=== PATIENT | male | born 1950 | race Hispanic/Latino ===

== ENCOUNTER 2017-07-14 08:30 | Observation (INO) | payer MEDICARE, OTHER ==
[~2017-07-14] VITALS: Ht 177.8 cm; Wt 95.7 kg
[~2017-07-14 08:30] MED LIST: ASPI-555 PO; CLOP75TA14 PO; LOSA50TA37 PO; METO-408 PO; ROSU5TAB18 PO
[2017-07-14] MEDS ORDERED: NITROGLYCERIN 1GM/1 INCH PACKET TD ONE (08:53)
[2017-07-14] MEDS ORDERED: ASPIRIN 81MG TAB.CHEW ONE (08:53)
[2017-07-14 09:03] LABS: BASOPHILS % (AUTO) 0.5 % (0.0-5.0); EOSINOPHILS % (AUTO) 3.5 % (0.0-8.0); HEMATOCRIT 39.4 % (42-54); LYMPHOCYTES % (AUTO) 36.1 % (21.0-51.0); MEAN CORPUSCULAR HEMOGLOBIN 28.8 pg (27.0-33.0); MEAN CORPUSCULAR HGB CONC 33.8 g/dL (32.0-36.0); MEAN CORPUSCULAR VOLUME 85.3 fL (79-99); MONOCYTES % (AUTO) 9.7 % (3.0-13.0); NEUTROPHILS % (AUTO) 50.2 % (40.0-77.0); NUCLEATED RED BLOOD CELLS 0.1 % (0.0-0.19); PLATELET COUNT (AUTO) 174 K/uL (130-400); RED BLOOD CELL COUNT(AUTO) 4.62 MIL/uL (4.50-6.20); RED CELL DISTRIBUTION WIDTH 12.7 % (11.0-15.5); WHITE BLOOD COUNT (AUTO) 6.6 K/uL (4.8-10.8)
[2017-07-14 09:20] LABS: INR 0.95 (0.85-1.15); PARTIAL THROMBOPLASTIN TIME 24.8 SEC (26.3-35.5)
[2017-07-14 09:23] LABS: CREATININE 0.9 mg/dL (0.5-1.5)
[2017-07-14 09:37] LABS: ALBUMIN 3.6 g/dL (3.5-5.0); BILIRUBIN,TOTAL 0.8 mg/dL (0.2-1.0); CREATINE KINASE MB 0.6 ng/mL (0.5-3.6); TOTAL PROTEIN, SERUM 7.1 g/dL (6.0-8.3)
[2017-07-14] MEDS ORDERED: ACETAMINOPHEN-CODEINE 300/30MG TAB PO PRN ×2 (10:45)
[2017-07-14] MEDS ORDERED: LACTULOSE 20 GM/30 ML UDCUP PO PRN (10:45)
[2017-07-14] MEDS ORDERED: POTASSIUM CHLORIDE 20 MEQ ERTAB PO PRN (10:45)
[2017-07-14] MEDS ORDERED: NITROGLYCERIN 0.4 MG SL TAB SL PRN (10:45)
[2017-07-14] MEDS ORDERED: MORPHINE SULFATE 2 MG/ML 1ML SYG IV PRN (10:45)
[2017-07-14] MEDS ORDERED: ONDANSETRON HCL 4 MG/2 ML VIAL IV PRN (10:45)
[2017-07-14] MEDS ORDERED: LIDOCAINE HCL-MPF 1% 2ML VIAL IVP PRN (10:45)
[2017-07-14] MEDS ORDERED: HYDRALAZINE HCL 20 MG/ML VIAL IV PRN (10:45)
[2017-07-14] MEDS ORDERED: ACETAMINOPHEN 325 MG TAB PO PRN ×2 (10:45)
[2017-07-14] MEDS ORDERED: GUAIFENESIN-DM 200/20 MG 10 ML PO PRN (10:45)
[2017-07-14] MEDS: NITROGLYCERIN 1GM/1 INCH PACKET TD SCH ×2 (10:45→19:30)
[2017-07-14] MEDS ORDERED: POTASSIUM CHLORIDE 20MEQ/100ML 100 ML IV PRN (10:45)
[2017-07-14] MEDS ORDERED: MAG HYDROX/AL HYDROX/SIMETH ES 30 ML SUSP UDCUP PO PRN (10:45)
[2017-07-14] MEDS ORDERED: POTASSIUM CHLORIDE 10% ELIXIR 20 MEQ/15 ML UDCUP PO PRN (10:45)
[2017-07-14] MEDS ORDERED: MORPHINE SULFATE 4 MG/1ML SYG IV PRN (10:45)
[2017-07-14] MEDS ORDERED: ENOXAPARIN SODIUM 40 MG/0.4 ML SYRINGE SQ ONE (10:58)
[2017-07-14] MEDS ORDERED: METOPROLOL TARTRATE 25 MG TAB ONE (10:59)
[2017-07-14] MEDS ORDERED: FAMOTIDINE 20MG TAB 20 MG TAB ONE (10:59)
[2017-07-14 11:14] VITALS: BP 146/79
[2017-07-14 12:15] VITALS: BP 134/68
[2017-07-14 13:48] LABS: CREATINE KINASE MB < 0.5 ng/mL (0.5-3.6); CREATINE KINASE, TOTAL 67 U/L (21-232); MYOGLOBIN 46 ng/mL (10-92); TROPONIN I < 0.04 ng/mL (0.00-0.06)
[2017-07-14] MEDS: LOSARTAN 50 MG TABLET PO SCH (15:35)
[2017-07-14 16:00] VITALS: BP 121/67
[2017-07-14 17:54] LABS: CREATINE KINASE, TOTAL 90 U/L (21-232); MYOGLOBIN 96 ng/mL (10-92); TROPONIN I < 0.04 ng/mL (0.00-0.06)
[2017-07-14 19:32] VITALS: BP 122/69
[2017-07-14] MEDS: FAMOTIDINE 20MG TAB 20 MG TAB PO SCH (21:06)
[2017-07-14] MEDS: METOPROLOL TARTRATE 25 MG TAB PO SCH (21:08)
[2017-07-14 23:23] VITALS: BP 123/71
[2017-07-15] VITALS (12 sets, daily range): BP systolic 124–153; BP diastolic 64–76
[2017-07-15] MEDS: NITROGLYCERIN 1GM/1 INCH PACKET TD SCH ×2 (03:05→10:45)
[2017-07-15 04:28] LABS: CREATININE 1.2 mg/dL (0.5-1.5); POTASSIUM 3.7 mmol/L (3.5-5.1)
[2017-07-15] MEDS ORDERED: ENOXAPARIN SODIUM 40 MG/0.4 ML SYRINGE SQ SCH (09:00)
[2017-07-15] MEDS: ASPIRIN 81MG TAB.CHEW PO SCH (12:02)
[2017-07-15] MEDS: CLOPIDOGREL BISULFATE 75 MG TAB PO SCH (12:02)
[2017-07-15] MEDS: FAMOTIDINE 20MG TAB 20 MG TAB PO SCH ×2 (12:02→23:49)
[2017-07-15] MEDS: LOSARTAN 50 MG TABLET PO SCH (12:02)
[2017-07-15] MEDS: METOPROLOL TARTRATE 25 MG TAB PO SCH ×2 (12:02→23:49)
[2017-07-15] MEDS ORDERED: ISOVUE-370 50ML VIAL IV ONE (15:07)
[2017-07-15] MEDS ORDERED: SODIUM BICARB 50MEQ 50ML VIAL ONE (15:07)
[2017-07-15] MEDS ORDERED: NITROGLYCERIN 5 MG/ML 10 ML VIAL IV ONE (15:07)
[2017-07-15] MEDS ORDERED: LIDOCAINE HCL 2% 20ML ONE (15:07)
[2017-07-15] MEDS ORDERED: IOPAMIDOL-370 100 ML VIAL IV ONE (15:07)
[2017-07-15] MEDS ORDERED: HEPARIN SODIUM 1000UNIT/ML 10ML VIAL ONE (15:07)
[2017-07-15] MEDS ORDERED: MEPERIDINE-PF 25 MG/ML SYG ONE ×2 (15:24→15:49)
[2017-07-15] MEDS ORDERED: MIDAZOLAM HCL 1 MG/ML 2ML VIAL ONE ×2 (15:24→15:49)
[2017-07-15] MEDS ORDERED: METO-391 PO (16:28)
[2017-07-15] MEDS ORDERED: LOSA100T29 PO (16:28)
[2017-07-15] MEDS ORDERED: ACETAMINOPHEN-CODEINE 300/30MG TAB PO PRN (16:30)
[2017-07-15] MEDS: SODIUM CHLORIDE 0.9% 1000ML 1,000 ML IV SCH (22:15)
[2017-07-16] VITALS: BP 165/75
[2017-07-16] MEDS: SODIUM CHLORIDE 0.9% 1000ML 1,000 ML IV SCH (02:16)
[2017-07-16 03:50] VITALS: BP 136/72
[2017-07-16 05:06] LABS: HEMATOCRIT 35.9 % (42-54); MEAN CORPUSCULAR HEMOGLOBIN 29.7 pg (27.0-33.0); MEAN CORPUSCULAR HGB CONC 35.4 g/dL (32.0-36.0); PLATELET COUNT (AUTO) 171 K/uL (130-400); RED BLOOD CELL COUNT(AUTO) 4.27 MIL/uL (4.50-6.20); RED CELL DISTRIBUTION WIDTH 12.7 % (11.0-15.5); WHITE BLOOD COUNT (AUTO) 7.8 K/uL (4.8-10.8)
[2017-07-16 05:40] LABS: POTASSIUM 3.9 mmol/L (3.5-5.1)
[2017-07-16 07:15] VITALS: BP 154/79
[2017-07-16] MEDS: CLOPIDOGREL BISULFATE 75 MG TAB PO SCH (07:37)
[2017-07-16] MEDS: ASPIRIN 81MG TAB.CHEW PO SCH (07:37)
[2017-07-16] MEDS: METOPROLOL TARTRATE 25 MG TAB PO SCH (07:37)
[2017-07-16] MEDS: FAMOTIDINE 20MG TAB 20 MG TAB PO SCH (07:37)
[2017-07-16] MEDS ORDERED: LOSARTAN 100 MG TABLET PO SCH (09:00)
[2017-07-16] MEDS ORDERED: ATORVASTATIN CALCIUM 10 MG TABLET PO SCH (09:00)
[2017-07-16] MEDS ORDERED: RANO500T2 PO (10:10)
== END 2017-07-16 11:50 | disposition home or self-care (01) ==
LOC: EDH 08:30 → EDHIP 10:30 → 2DH 11:46
PROVIDERS: ADMIT Internal Medicine; ATTEND Internal Medicine
DX: I25.119 Atherosclerotic heart disease of native coronary artery with unspecified angina pectoris (principal); I10 Essential (primary) hypertension; E78.5 Hyperlipidemia, unspecified; Z82.49 Family history of ischemic heart disease and other diseases of the circulatory system; Z95.1 Presence of aortocoronary bypass graft; Z95.5 Presence of coronary angioplasty implant and graft
CPT/HCPCS: 36252; 36415 ×3; 71045; 80048 ×2; 80053; 82550 ×3; 82553 ×3; 83874 ×2; 84484 ×3; 85025; 85027; 85610; 85730; 93005; 93458; 99285; C1760; C1894; G0378 ×49; J1644; J1650; J2175 ×2; J2250 ×2; J3490 ×3; J7030; Q9967 ×2; 99152; 99153

== ENCOUNTER → 2018-05-12 | Outpatient (CLI) | payer OTHER ==
[~2018-05-12] MED LIST changes: +LOSA100T58 PO; -LOSA50TA37 PO; +METO-391 PO; -METO-408 PO; +RANO500T2 PO; +ROSU5TAB11 PO; -ROSU5TAB18 PO
== END | disposition home or self-care (01) ==
LOC: SHCH 07:36
PROVIDERS: ATTEND Internal Medicine Cardiovascular Disease
DX: I65.23 Occlusion and stenosis of bilateral carotid arteries (principal)
CPT/HCPCS: 93880

== ENCOUNTER 2018-12-08 08:22 | Day surgery (SDC) | payer OTHER ==
[~2018-12-08] VITALS: Ht 177.8 cm; Wt 95.3 kg
[~2018-12-08 08:22] MED LIST changes: -ASPI-555 PO; -ROSU5TAB11 PO; +ROSU5TAB12 PO; +SODIUM CHLORIDE 0.9% 1000ML 1,000 ML IV ONE
[2018-12-08 09:51] VITALS: BP 152/61
[2018-12-08 12:00] VITALS: BP 108/60
[2018-12-08 12:05] VITALS: BP 120/69
[2018-12-08 12:10] VITALS: BP 126/70
[2018-12-08 12:15] VITALS: BP 122/72
[2018-12-08 12:20] VITALS: BP 159/72
== END 2018-12-08 12:38 | disposition home or self-care (01) ==
LOC: DAH 08:22 → ENDO 08:22
PROVIDERS: ATTEND Internal Medicine Gastroenterology
DX: Z12.11 Encounter for screening for malignant neoplasm of colon (principal); K63.5 Polyp of colon; K64.0 First degree hemorrhoids; E78.5 Hyperlipidemia, unspecified; I10 Essential (primary) hypertension; I25.10 Atherosclerotic heart disease of native coronary artery without angina pectoris; K57.30 Diverticulosis of large intestine without perforation or abscess without bleeding; Z88.1 Allergy status to other antibiotic agents; Z98.890 Other specified postprocedural states; Z79.899 Other long term (current) drug therapy; Z87.891 Personal history of nicotine dependence; Z82.49 Family history of ischemic heart disease and other diseases of the circulatory system; Z82.3 Family history of stroke
CPT/HCPCS: 45380; 88305; A4606; J7030

== ENCOUNTER → 2019-04-15 | Outpatient (CLI) | payer OTHER ==
[~2019-04-15] MED LIST changes: -SODIUM CHLORIDE 0.9% 1000ML 1,000 ML IV ONE
== END | disposition home or self-care (01) ==
LOC: SHCH 10:24
PROVIDERS: ATTEND Internal Medicine Cardiovascular Disease
DX: I65.23 Occlusion and stenosis of bilateral carotid arteries (principal)
CPT/HCPCS: 93880

== ENCOUNTER → 2020-07-04 | Outpatient (CLI) | payer OTHER | END | disposition home or self-care (01) | LOC: SHCH 09:41 | PROVIDERS: ATTEND Internal Medicine Cardiovascular Disease | DX: I65.23 Occlusion and stenosis of bilateral carotid arteries (principal) | CPT/HCPCS: 93880 ==

== ENCOUNTER 2022-06-27 05:58 | Day surgery (SDC) | payer OTHER ==
[2022-06-24 08:33] VITALS: BP 147/73
[2022-06-24 08:49] LABS: BASOPHILS % (AUTO) 0.4 % (0.0-5.0); EOSINOPHILS % (AUTO) 2.5 % (0.0-8.0); HEMATOCRIT 38.6 % (42-54); LYMPHOCYTES % (AUTO) 26.9 % (21.0-51.0); MEAN CORPUSCULAR HEMOGLOBIN 28.8 pg (27.0-33.0); MEAN CORPUSCULAR HGB CONC 33.2 g/dL (32.0-36.0); MEAN CORPUSCULAR VOLUME 86.7 fL (79-99); MONOCYTES % (AUTO) 7.5 % (3.0-13.0); NEUTROPHILS % (AUTO) 62.6 % (40.0-77.0); PLATELET COUNT (AUTO) 177 K/uL (130-400); RED BLOOD CELL COUNT(AUTO) 4.45 MIL/uL (4.50-6.20); RED CELL DISTRIBUTION WIDTH 12.2 % (11.0-15.5); WHITE BLOOD COUNT (AUTO) 6.8 K/uL (4.8-10.8)
[2022-06-24 08:56] LABS: APPEARANCE,URINE CLEAR (CLEAR); BILIRUBIN,URINE NEGATIVE (NEGATIVE); COLOR,URINE LIGHT-YELLOW (YELLOW); GLUCOSE, URINE (UA) NEGATIVE (NEGATIVE); KETONES,URINE NEGATIVE (NEGATIVE); LEUKOCYTE ESTERASE ,URINE NEGATIVE Leu/uL (NEGATIVE); NITRATE,URINE NEGATIVE (NEGATIVE); OCCULT BLOOD,URINE SMALL (NEGATIVE); PH,URINE 5.5 (5.0-8.0); PROTEIN,URINE NEGATIVE (NEGATIVE); UROBILINOGEN,URINE 0.2 mg/dL (0.2-1.0)
[2022-06-24 09:03] LABS: CREATININE 1.2 mg/dL (0.5-1.5); POTASSIUM 3.9 mmol/L (3.5-5.1)
[2022-06-24 09:06] LABS: INR 0.95 (0.85-1.15); PROTHROMBIN TIME 10.4 SEC (9.6-11.6)
[2022-06-24 09:06] LABS: MUCUS,URINE RARE LPF (None Seen); WBC,URINE 0-1 /HPF (0-1)
[2022-06-24 09:07] LABS: SQUAMOUS EPITHELIAL CELL,UR 0-2 /HPF (0-2)
[2022-06-24 09:07] LABS: PARTIAL THROMBOPLASTIN TIME 25.9 SEC (26.3-35.5)
[2022-06-24 09:25] LABS: B-TYPE NATRIURETIC PEPTIDE 47 pg/mL (0-100)
[~2022-06-27] VITALS: Ht 177.8 cm; Wt 97.3 kg
[2022-06-27] VITALS (10 sets, daily range): BP systolic 139–155; BP diastolic 67–82
[~2022-06-27 05:58] MED LIST changes: +CLOP-31 PO; -CLOP75TA14 PO
[2022-06-27] MEDS ORDERED: 0.9%NACL 1000ML 1,000 ML IV ONE (06:20)
[2022-06-27] MEDS ORDERED: IOHEXOL-350 50ML VIAL IV ONE (07:20)
[2022-06-27] MEDS ORDERED: NITROGLYCERIN 50MG VIAL ONE (07:20)
[2022-06-27] MEDS ORDERED: IOHEXOL 350 MG/ML 100ML INFUS..BTL IV ONE (07:20)
[2022-06-27] MEDS ORDERED: SODIUM BICARB 50MEQ 50ML VIAL 50 ML ONE (07:20)
[2022-06-27] MEDS ORDERED: MEPERIDINE-PF 25 MG/ML SYG ONE ×2 (07:20→07:44)
[2022-06-27] MEDS ORDERED: HEPARIN 10,000 UNIT/10ML (1,000 UNIT/ML) VIAL ONE (07:20)
[2022-06-27] MEDS ORDERED: LIDOCAINE HCL 400MG/20ML VIAL ONE (07:21)
[2022-06-27] MEDS ORDERED: MIDAZOLAM HCL 1 MG/ML 2ML VIAL ONE ×2 (07:21→07:44)
[2022-06-27] MEDS ORDERED: ASPI-1197 PO (07:23)
[2022-06-27] MEDS ORDERED: NICARDIPINE 25MG INJ IV ONE (07:28)
[2022-06-27] MEDS ORDERED: 0.9%NACL 1000ML 1,000 ML IV SCH (08:30)
== END 2022-06-27 12:45 | disposition home or self-care (01) ==
LOC: DAH 05:58
PROVIDERS: ATTEND Internal Medicine Cardiovascular Disease
DX: I25.119 Atherosclerotic heart disease of native coronary artery with unspecified angina pectoris (principal); I10 Essential (primary) hypertension; M17.0 Bilateral primary osteoarthritis of knee; Z98.890 Other specified postprocedural states; Z82.49 Family history of ischemic heart disease and other diseases of the circulatory system; Z79.01 Long term (current) use of anticoagulants; Z79.899 Other long term (current) drug therapy; Z95.5 Presence of coronary angioplasty implant and graft
CPT/HCPCS: 80048; 83880; 85025; 85610; 85730; 81001; 36415; 71045; 93005; 93458; C1769; C1894; J3490 ×4; J7030; J1644 ×2; J2250 ×2; J2175 ×2; Q9967; A4215; A4222; A4221; A4663; A4216; A4606; Q9965 ×2; A4223 ×3; 96360; 96361; 99156; 99157

== ENCOUNTER → 2023-08-13 | Outpatient (CLI) | payer OTHER ==
[~2023-08-13] MED LIST changes: +ASPI-1197 PO; -LOSA100T58 PO; +LOSA100T59 PO; -RANO500T2 PO
[2023-08-13 12:24] LABS: MAGNESIUM 2.2 mg/dL (1.80-2.40)
== END | disposition home or self-care (01) ==
LOC: LAB 11:13
PROVIDERS: ATTEND Internal Medicine Cardiovascular Disease
DX: I10 Essential (primary) hypertension (principal); I25.10 Atherosclerotic heart disease of native coronary artery without angina pectoris; E78.5 Hyperlipidemia, unspecified
CPT/HCPCS: 36415; 83735; 83880; 84402; 84403

== ENCOUNTER → 2023-10-06 | Outpatient (CLI) | payer OTHER ==
[~2023-10-06] MED LIST changes: -ROSU5TAB12 PO; +ROSU5TAB43 PO
== END | disposition home or self-care (01) ==
LOC: SHCH 08:10
PROVIDERS: ATTEND Internal Medicine Cardiovascular Disease
DX: I08.3 Combined rheumatic disorders of mitral, aortic and tricuspid valves (principal); I11.9 Hypertensive heart disease without heart failure
CPT/HCPCS: 93306

== ENCOUNTER 2023-11-18 11:37 | Emergency (ER) | payer OTHER ==
[~2023-11-18] VITALS: Ht 180.3 cm; Wt 95.3 kg
[2023-11-18 12:25] LABS: BASOPHILS # (AUTO) 0.03 K/uL (0.00-0.20); BASOPHILS % (AUTO) 0.4 % (0.0-5.0); EOSINOPHILS # (AUTO) 0.22 K/uL (0.00-0.70); HEMATOCRIT 35.2 % (42-54); IMMATURE GRANULOCYTE ABSOLUTE 0.04 K/uL (0-1); LYMPHOCYTES # (AUTO) 1.9 K/uL (1.0-4.8); LYMPHOCYTES % (AUTO) 25.9 % (21.0-51.0); MEAN CORPUSCULAR HEMOGLOBIN 28.3 pg (27.0-33.0); MEAN CORPUSCULAR HGB CONC 33.5 g/dL (32.0-36.0); MEAN CORPUSCULAR VOLUME 84.4 fL (79-99); MONOCYTES # (AUTO) 0.8 K/uL (0.1-1.0); MONOCYTES % (AUTO) 10.2 % (3.0-13.0); NEUTROPHILS # (AUTO) 4.4 K/uL (1.8-7.7); PLATELET COUNT (AUTO) 190 K/uL (130-400); RED BLOOD CELL COUNT(AUTO) 4.17 MIL/uL (4.50-6.20); WHITE BLOOD COUNT (AUTO) 7.3 K/uL (4.8-10.8)
[2023-11-18 12:51] LABS: INR 1.11 (0.85-1.15); PROTHROMBIN TIME 11.9 SEC (9.6-11.6)
[2023-11-18 12:53] LABS: PARTIAL THROMBOPLASTIN TIME 26.5 SEC (26.3-35.5)
[2023-11-18 13:00] LABS: CREATININE 1.1 mg/dL (0.5-1.3); POTASSIUM 4.6 mmol/L (3.5-5.1)
[2023-11-18 13:04] LABS: ALBUMIN 3.6 g/dL (3.5-5.0); BILIRUBIN,TOTAL 0.7 mg/dL (0.2-1.0); TOTAL PROTEIN, SERUM 6.8 g/dL (6.0-8.3)
[2023-11-18] MEDS: FUROSEMIDE 40 MG TABLET PO ONE (15:36)
[2023-11-18 16:23] VITALS: BP 135/84; PULSE 78; RESP 18; O2SAT 98
== END 2023-11-18 16:27 | disposition home or self-care (01) ==
LOC: EDH 11:37
DX: I11.0 Hypertensive heart disease with heart failure (principal); I50.9 Heart failure, unspecified; R06.00 Dyspnea, unspecified; I48.91 Unspecified atrial fibrillation; E78.00 Pure hypercholesterolemia, unspecified; F17.200 Nicotine dependence, unspecified, uncomplicated; Z79.82 Long term (current) use of aspirin; Z79.899 Other long term (current) drug therapy; Z88.0 Allergy status to penicillin; Z95.5 Presence of coronary angioplasty implant and graft; Z98.890 Other specified postprocedural states
CPT/HCPCS: 36415; 71046; 80053; 83880; 84443; 84484; 85025; 85610; 85730; 93005

== ENCOUNTER → 2023-11-21 | Outpatient (CLI) | payer OTHER ==
[2023-11-21] MEDS: REGADENOSON 0.4 MG/5 ML PF SYG IVP ONE (11:38)
== END | disposition home or self-care (01) ==
LOC: SHCH 08:10
PROVIDERS: ATTEND Internal Medicine Cardiovascular Disease
DX: I10 Essential (primary) hypertension (principal); I48.0 Paroxysmal atrial fibrillation
CPT/HCPCS: 78452; 96374; 93017; J2785; A9500 ×2

== ENCOUNTER 2024-06-10 09:48 | Day surgery (SDC) | payer OTHER ==
[2024-06-08 08:44] VITALS: BP 138/70; PULSE 78; RESP 14; TEMP 98.4
[2024-06-08 08:46] LABS: BASOPHILS # (AUTO) 0.02 K/uL (0.00-0.20); BASOPHILS % (AUTO) 0.3 % (0.0-5.0); EOSINOPHILS # (AUTO) 0.18 K/uL (0.00-0.70); EOSINOPHILS % (AUTO) 2.5 % (0.0-8.0); IMMATURE GRANULOCYTE ABSOLUTE 0.01 K/uL (0-1); LYMPHOCYTES # (AUTO) 1.9 K/uL (1.0-4.8); LYMPHOCYTES % (AUTO) 26.1 % (21.0-51.0); MEAN CORPUSCULAR HEMOGLOBIN 28.6 pg (27.0-33.0); MEAN CORPUSCULAR HGB CONC 32.8 g/dL (32.0-36.0); MEAN CORPUSCULAR VOLUME 87.3 fL (79-99); MONOCYTES # (AUTO) 0.7 K/uL (0.1-1.0); MONOCYTES % (AUTO) 9.8 % (3.0-13.0); NEUTROPHILS # (AUTO) 4.4 K/uL (1.8-7.7); NEUTROPHILS % (AUTO) 61.2 % (40.0-77.0); PLATELET COUNT (AUTO) 159 K/uL (130-400); RED BLOOD CELL COUNT(AUTO) 4.58 MIL/uL (4.50-6.20); RED CELL DISTRIBUTION WIDTH 12.5 % (11.0-15.5); WHITE BLOOD COUNT (AUTO) 7.1 K/uL (4.8-10.8)
[2024-06-08 08:53] LABS: CREATININE 1.2 mg/dL (0.5-1.3); POTASSIUM 4.4 mmol/L (3.5-5.1)
[~2024-06-10] VITALS: Ht 180.3 cm; Wt 97.3 kg
[~2024-06-10 09:48] MED LIST changes: +AMLO-257 PO; +APIX5TAB PO; -ASPI-1197 PO; +DRON400T7 PO; -METO-391 PO; +ROSU20TA98 PO; -ROSU5TAB43 PO
[2024-06-10 10:00] VITALS: BP 159/66; PULSE 94; RESP 16; TEMP 97.5
--- NOTE | 2024-06-10 10:29 | EKG ---
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
[2024-06-10] MEDS: 0.9%NACL 1000ML 1,000 ML IV SCH (11:13)
[2024-06-10] MEDS ORDERED: LIDOCAINE PF 100MG/5ML (2%) SYRINGE 5ML ONE (12:00)
[2024-06-10] MEDS ORDERED: proPOFol 10 MG/ML 20ML VIAL IV ONE (12:00)
--- NOTE | 2024-06-10 12:13 | NUR ---
PT SYNCHRONIZED CARDIOVERTED 200 JOULES AT THIS TIME PT TOLERATED WELL NAD VSS PT DID CONVERT TO NSR
--- NOTE | 2024-06-10 12:19 | NUR ---
PT CAOX4 VSS NAD
[2024-06-10 12:35] VITALS: BP 108/60; PULSE 70; RESP 14
[2024-06-10 12:50] VITALS: BP 109/61; PULSE 67; RESP 16
[2024-06-10 13:05] VITALS: BP 117/65; PULSE 66; RESP 15
[2024-06-10 13:20] VITALS: BP 109/64; PULSE 70; RESP 16
--- NOTE | 2024-06-10 14:10 | EKG ---
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
--- NOTE | 2024-06-10 14:36 | EKG ---
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
--- NOTE | 2024-06-11 12:14 | PRN ---
Procedure Note INDICATION FOR PROCEDURE: Persistent atrial fibrillation PROCEDURE: Cardioversion DATE OF PROCEDURE: 06/10/24 WHITE SHOE RAGGER: Andreas Saul MD PROCEDURE NOTE: The patient was brought to the day patient area in a fasting state. Anesthesia was provided by the anesthesia service. A synchronized shock of 200 joules was delivered resulting in sinus rhythm. The patient tolerated the procedure well. There were no complications. COMPLICATIONS: None IMPRESSION: Persistent atrial fibrillation status post successful cardioversion PLAN: 1. The patient will be observed and discharged home later today. 2. Follow-up with me in the office in approximately two weeks. ANDREAS SAUL MD Jun 11, 2024 12:14
== END 2024-06-10 13:20 | disposition home or self-care (01) ==
LOC: DAH 09:48
PROVIDERS: ATTEND Internal Medicine Cardiovascular Disease
DX: I48.19 Other persistent atrial fibrillation (principal); I25.10 Atherosclerotic heart disease of native coronary artery without angina pectoris; I10 Essential (primary) hypertension; G47.33 Obstructive sleep apnea (adult) (pediatric); Z82.49 Family history of ischemic heart disease and other diseases of the circulatory system; Z88.0 Allergy status to penicillin; Z79.899 Other long term (current) drug therapy; Z98.890 Other specified postprocedural states
CPT/HCPCS: 80048; 85025; 36415; 93005 ×2; 92960; A4223 ×3; J7030; J2003; J2704; A4620; A4215; A4222; A4221; A4663; A4216; A4606; J3490